=== PATIENT | female | born 1965 | race African-American/Black ===

== ENCOUNTER 2018-05-30 11:44 | Outpatient (CLI) | payer MEDICARE ==
[2014-06-22 14:14] VITALS: BP 132/68
--- NOTE | 2018-05-30 13:54 | Diagnostic Imaging Report ---
CHICO MOODY [facility] [id number] [facility].[address] [address] Report Submission Date: May 30, 2018 1:46:11 PM CDT Patient Study Name: CHRIS GARDINER Date: May 30, 2018 11:53:30 AM CDT Modality Type: DX Gender: F Description: LOWER EXTREMITY : 61 Institution: [facility] Physician: CHICO MOODY Bilateral lower extremity History: Painful calluses bilaterally Three views of the bilateral feet were obtained which demonstrate moderate-sized dorsal and plantar calcaneal spurs on the left and small dorsal and plantar calcaneal spurs on the right. There is mild osteoarthritis of the 1st MTP joint on the right. Otherwise, no osseous abnormalities are noted. Metatarsal/tarsal alignment is normal. Impression: Bilateral heel spurs as described. 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 Electronically signed on May 30, 2018 1:46:11 PM CDT by: Cyndi ALLISON
== END 2018-05-30 11:45 ==
LOC: RAD 11:44
PROVIDERS: ATTEND Podiatrist Foot & Ankle Surgery
DX: M79.673 Pain in unspecified foot (principal)

== ENCOUNTER 2018-06-20 11:14 | Outpatient (CLI) | payer MEDICARE, OTHER ==
[2014-06-22 14:14] VITALS: BP 132/68
--- NOTE | 2018-06-20 17:00 | Diagnostic Imaging Report ---
CHICO MOODY [facility] [id number] [facility].[address] [address] Report Submission Date: Jun 20, 2018 4:53:16 PM CDT Patient Study Name: CHRIS GARDINER Date: Jun 20, 2018 11:52:31 AM CDT Modality Type: US Gender: F Description: TOBIAS : 61 Institution: [facility] Physician: CHICO MOODY Bilateral lower extremity arterial duplex History: Foot pain Duplex and color flow imaging was performed through the bilateral lower extremity femoral popliteal arterial system revealing normal multiphasic waveforms throughout bilaterally. The calf vessels were difficult to assess. Peak systolic velocity within the right lower extremity is within the superficial femoral artery at 131.4 cm/s. Peak systolic velocity on the left is within the superficial femoral artery at 161 cm/s. Impression: No hemodynamically significant flow restriction to either lower extremity. Electronically signed on Jun 20, 2018 4:53:16 PM CDT by: Cyndi ALLISON
== END 2018-06-20 11:15 ==
LOC: RAD 11:14
PROVIDERS: ATTEND Podiatrist Foot & Ankle Surgery
DX: I73.9 Peripheral vascular disease, unspecified (principal); M79.673 Pain in unspecified foot
CPT/HCPCS: 93925